=== PATIENT | female | born 2005 | race Caucasian/White ===

== ENCOUNTER 2024-08-22 17:18 | Emergency (ER) | payer OTHER ==
[~2024-08-22] VITALS: Ht 172.7 cm; Wt 92.9 kg
[2024-08-22 17:20] VITALS: O2SAT 99
[2024-08-22 17:27] VITALS: BP 131/92; PULSE 92; RESP 16; TEMP 98.1; O2SAT 100
[2024-08-22] MEDS ORDERED: CYCL5TAB3 MT (19:01)
[2024-08-22] MEDS ORDERED: BO1 TP (19:01)
[2024-08-22] MEDS ORDERED: NAPR-681 PO (19:01)
== END 2024-08-22 19:12 | disposition home or self-care (01) ==
LOC: ER 17:18
DX: S39.012A Strain of muscle, fascia and tendon of lower back, initial encounter (principal); S16.1XXA Strain of muscle, fascia and tendon at neck level, initial encounter; S70.312A Abrasion, left thigh, initial encounter; R07.89 Other chest pain; Z88.0 Allergy status to penicillin; V43.52XA Car driver injured in collision with other type car in traffic accident, initial encounter; Y93.89 Activity, other specified; Y92.89 Other specified places as the place of occurrence of the external cause; Y99.8 Other external cause status
CPT/HCPCS: 71045; 72110; 81025; 99284